=== PATIENT | female | born 1985 | race Caucasian/White ===

== ENCOUNTER 2018-10-21 07:36 | Emergency (ER) | payer OTHER ==
[~2018-10-21] VITALS: Ht 157.5 cm; Wt 71.2 kg
[2018-10-21 07:58] VITALS: BP 124/83
--- NOTE | 2018-10-21 07:58 | NUR ---
PT TAKEN TO BED 1 TRIAGED AT BEDSIDE.
--- NOTE | 2018-10-21 08:01 | NUR ---
32/F c/o vaginal bleeding that started last night. Pt states it began as spotting and this morning she noticed small blood clots. pt states she has only changed x1 panty liner. Pt reports being 11 weeks . G-2 P-1. Pt also c/o mild lower abdominal cramping. Pt states "it feels like menstrual cramps." Skin warm, dry and intact. AOX4, clear speech. VSS. Pt states OBGYN is a checker in.
--- NOTE | 2018-10-21 09:01 | NUR ---
Pt report given to Cristela WIN. Transfer of care at this time.
[2018-10-21 09:12] LABS: BASOPHILS % (AUTO) 0.5 % (0.0-2.0); EOSINOPHILS # (AUTO) 0.1 K/uL (0-0.4); EOSINOPHILS % (AUTO) 1.3 % (0.0-4.0); HEMATOCRIT 41.4 % (36-48); HEMOGLOBIN 14.5 g/dL (12.0-16.0); LYMPHOCYTES # (AUTO) 1.3 K/uL (2.5-16.5); LYMPHOCYTES % (AUTO) 19.2 % (20.5-51.1); MEAN CORPUSCULAR HEMOGLOBIN 32 pg (27-31); MEAN CORPUSCULAR HGB CONC 35 g/dL (33-37); MONOCYTES # (AUTO) 0.7 K/uL (0.8-1.0); NEUTROPHILS # (AUTO) 4.5 K/uL (1.8-7.7); PLATELET COUNT (AUTO) 226 K/uL (140-450); RED BLOOD CELL COUNT(AUTO) 4.55 MIL/uL (4.20-5.40); RED CELL DISTRIBUTION WIDTH 13.2 % (11.6-13.7); WHITE BLOOD COUNT (AUTO) 6.5 K/uL (4.8-10.8)
[2018-10-21 10:03] LABS: ANION GAP 13.5 (8-16); CARBON DIOXIDE 26.4 mmol/L (21-32); CREATININE 0.6 mg/dL (0.6-1.3); POTASSIUM 3.9 mmol/L (3.5-5.1)
[2018-10-21 10:16] LABS: ALBUMIN 3.8 g/dL (3.4-5.0); TOTAL BILIRUBIN 0.5 mg/dL (0.0-1.0)
[2018-10-21 10:23] LABS: APPEARANCE,URINE CLEAR (CLEAR); BILIRUBIN,URINE NEGATIVE (NEGATIVE); BLOOD, URINE 3+ (NEGATIVE); COLOR,URINE YELLOW (YELLOW); LEUKOCYTE ESTERASE ,URINE NEGATIVE (NEGATIVE); NITRITE, URINE NEGATIVE (NEGATIVE); UGLUCOSE NEGATIVE (NEGATIVE)
--- NOTE | 2018-10-21 10:31 | NUR ---
Pelvic exam has been set up. Pt informed that is going to do pelvic exam on her. Awaiting Dr. Burr to implement the exam.
[2018-10-21 11:00] LABS: RBC,URINE NONE SEEN /HPF (0-5); WBC,URINE NONE SEEN /HPF (0-5)
[2018-10-21 11:46] VITALS: BP 114/77
--- NOTE | 2018-10-21 11:46 | NUR ---
Patient discharged with v/s stable. Written and verbal after care instructions given and explained. Patient verbalized understanding. Ambulatory with steady gait. All questions addressed prior to discharge. Advised to follow up with PMD.
== END 2018-10-21 11:46 | disposition home or self-care (01) ==
LOC: MED 07:36
DX: O20.0 Threatened abortion (principal); Z3A.11 11 weeks gestation of pregnancy
CPT/HCPCS: 36415; 76817; 80053; 81001; 81025; 84702; 85025; 86900; 86901; 99284; Q0092

== ENCOUNTER 2018-10-24 15:30 | Inpatient (IN) | payer OTHER ==
[~2018-10-24] VITALS: Ht 157.5 cm; Wt 71.2 kg
[2018-10-24 15:36] VITALS: BP 128/70
--- NOTE | 2018-10-24 15:50 | NUR ---
32/M BIB FAMILY C/O VAG BLEED& LOWER ABDOMINAL CRAMPING X 5 DAYS. PATIENT STATES PAIN OF 7/10 AT THIS TIME. PATIENT POSITIONED FOR COMFORT; HOB ELEVATED; BEDRAILS UP X1; BED DOWN. ER MD MADE AWARE OF PT STATUS.
--- NOTE | 2018-10-24 15:52 | NUR ---
US AT BEDSIDE
[2018-10-24 16:25] LABS: BASOPHILS % (AUTO) 0.2 % (0.0-2.0); EOSINOPHILS # (AUTO) 0.1 K/uL (0-0.4); EOSINOPHILS % (AUTO) 0.9 % (0.0-4.0); HEMATOCRIT 42.4 % (36-48); HEMOGLOBIN 14.9 g/dL (12.0-16.0); LYMPHOCYTES # (AUTO) 1.5 K/uL (2.5-16.5); LYMPHOCYTES % (AUTO) 14.3 % (20.5-51.1); MEAN CORPUSCULAR HEMOGLOBIN 32 pg (27-31); MEAN CORPUSCULAR HGB CONC 35 g/dL (33-37); MONOCYTES # (AUTO) 0.8 K/uL (0.8-1.0); MONOCYTES % (AUTO) 7.8 % (1.7-9.3); NEUTROPHILS # (AUTO) 7.9 K/uL (1.8-7.7); NEUTROPHILS % (AUTO) 76.8 % (42.2-75.2); PLATELET COUNT (AUTO) 240 K/uL (140-450); RED BLOOD CELL COUNT(AUTO) 4.66 MIL/uL (4.20-5.40); RED CELL DISTRIBUTION WIDTH 13.4 % (11.6-13.7); WHITE BLOOD COUNT (AUTO) 10.2 K/uL (4.8-10.8)
[2018-10-24 16:36] LABS: APPEARANCE,URINE BLOODY (CLEAR); BILIRUBIN,URINE NEGATIVE (NEGATIVE); BLOOD, URINE 3+ (NEGATIVE); COLOR,URINE RED (YELLOW); LEUKOCYTE ESTERASE ,URINE NEGATIVE (NEGATIVE); NITRITE, URINE NEGATIVE (NEGATIVE); UGLUCOSE NEGATIVE (NEGATIVE)
[2018-10-24 16:43] LABS: RBC,URINE TOO NUMEROUS TO COUN /HPF (0-5); WBC,URINE NONE SEEN /HPF (0-5)
--- NOTE | 2018-10-24 19:02 | NUR ---
Patient will be admitted to [facility]. Admited to MS. Will go to room 106A. Belongings list completed. Report to JOSUE RODRIGUEZ.
--- NOTE | 2018-10-24 19:43 | NUR ---
RECEIVED REPORT FROM CHARGE NURSE FOR ADMISSION. PT. AWAKE AND ALERT. ABLE TO VERBALIZE SIMPLE NEEDS. DX. OF MISSED AND WITH IVF SITE TO [facility] UNDER MD RAMA LY. FAMILY MEMBERS IN HERE TO VISIT.
--- NOTE | 2018-10-24 20:14 | NUR ---
MD ONTIVEROS CALLED FOR PT. TO SIGN CONSENT FOR SUCTION, DILATION AND CURETTAGE. PT. AWAKE AND ALERT. ORIENTED. OR NURSES IN HERE AND TALKED WITH HER AND FAMILY. PT. TO BE TRANSPORTED TO SURGERY FOR PROCEDURE. ORIENTED X 4. VITAL SIGNS WITH IN NORMAL LIMITS.
[2018-10-24 20:16] VITALS: BP 133/71
[2018-10-24] MEDS ORDERED: fentaNYL 0.05 MG/ML VIAL ONE (20:38)
--- NOTE | 2018-10-24 21:44 | NUR ---
PT. BACK FROM OR AWAKE AND ALERT. NO SOB. NO PAIN COMPLAINTS AT THIS TIME. ENCOURAGED TO USE CALL LIGHT FOR ANY HELP SHE MAY NEED OR IF IN PAIN. "OK"
[2018-10-24 21:45] VITALS: BP 113/65
[2018-10-24] MEDS ORDERED: IBUPROFEN 600 MG TAB PO PRN (23:10)
--- NOTE | 2018-10-24 23:23 | NUR ---
PT. STILL AWAKE AT THIS TIME. SPOUSE AT BEDSIDE. ASSISTED TO RESTROOM TO URINATE BY MARRIAGE AND FAMILY THERAPIST. "I FEEL WEAK." ENCOURAGED TO USE CALL LIGHT FOR A [place] HELP SHE MAY NEED.
[2018-10-25 00:46] VITALS: BP 111/55
--- NOTE | 2018-10-25 00:54 | NUR ---
PT. ASKED IF SHE IS BLEEDING HEAVILY. "NO, ONLY SPOT AND NOT HEAVY LIKE BEFORE." ENCOURAGED TO LET ME KNOW IF SHE URINATES AGAIN AND IF SHE CHANGES HER SANITARY PADS TO LET ME SEE IT SO WE WOULD KNOW IF SHE IS BLEEDING HEAVILY. "OK" CALL LIGHT WITH IN REACH. REMINDED TO USE CALL LIGHT FOR HELP.
--- NOTE | 2018-10-25 01:45 | NUR ---
SLEEPING AT THIS TIME.
--- NOTE | 2018-10-25 03:58 | NUR ---
WOKE UP AND ASSISTED TO RESTROOM TO URINATE. STATED PADS NOT SOAKED. ONLY SPOTS. ABLE TO VERBALIZE WELL WITH ME. STILL WEAK AT THIS TIME. CALL LIGHT WITH IN REACH.
--- NOTE | 2018-10-25 04:48 | NUR ---
PT. SLEPT BACK AFTER URINATING IN RESTROOM. NO PAIN COMPLAINTS DONE.
[2018-10-25 07:03] LABS: BASOPHILS % (AUTO) 0.2 % (0.0-2.0); HEMATOCRIT 32.4 % (36-48); HEMOGLOBIN 11.5 g/dL (12.0-16.0); LYMPHOCYTES # (AUTO) 0.8 K/uL (2.5-16.5); LYMPHOCYTES % (AUTO) 9.5 % (20.5-51.1); MEAN CORPUSCULAR HEMOGLOBIN 33 pg (27-31); MEAN CORPUSCULAR HGB CONC 36 g/dL (33-37); MEAN CORPUSCULAR VOLUME 91.6 fL (80-94); MONOCYTES # (AUTO) 0.3 K/uL (0.8-1.0); NEUTROPHILS # (AUTO) 6.9 K/uL (1.8-7.7); NEUTROPHILS % (AUTO) 86.3 % (42.2-75.2); PLATELET COUNT (AUTO) 219 K/uL (140-450); RED BLOOD CELL COUNT(AUTO) 3.54 MIL/uL (4.20-5.40); RED CELL DISTRIBUTION WIDTH 13.3 % (11.6-13.7)
--- NOTE | 2018-10-25 07:14 | NUR ---
PT. BEEN AWAKE FOR QUIET SOME TIME NOW. ABLE TO VERBALIZE NEEDS WELL. NO COMPLAINTS OF PAIN DONE S/P PROCEDURE,. STATED PAIN IS TOLERABLE AND SO FAR NO NEED OF ANY PAIN RELIEVER DURING MY SHIFT. ASSISTED IN GOING RESTROOM RT "I FEEL WEAK". NO N/V THIS SHIFT.
--- NOTE | 2018-10-25 07:19 | NUR ---
RECEIVED PT FROM COUNTERSINKER BALANCE SCREW HOLE NURSE, SAM, PT IS AWAKE AND SEATED ON THE BED WITH IV LINE ON THE RT AC G. 20 ON SALINE LOCK, SIDE RAILS ARE UP AND CALL LIGHT WITHIN REACH, PT DENIES PAIN AND NO SIGN OF DISTRESS NOTED. WILL MONITOR PT.
[2018-10-25 08:00] VITALS: BP 113/61
--- NOTE | 2018-10-25 08:02 | NUR ---
PATIENT HAS BEEN SCREENED AND CATEGORIZED LOW NUTRITION RISK. PATIENT WILL BE SEEN WITHIN 7 DAYS OF ADMISSION. 10/31/[address]
--- NOTE | 2018-10-25 08:23 | NUR ---
PT IS AWAKE AND IS EATING HER BREAKFAST, C/O PAIN RATE OF 6/10 AND PAIN MEDICATION WAS GIVEN AND TOLERATED IT. WILL RE-ASSESS AND MONITOR PT.
--- NOTE | 2018-10-25 10:30 | NUR ---
DR. ONTIVEROS CALLED AND MADE A TELEPHONE ORDER THAT PT CAN BE DISCHARGE TODAY AND CAN HAVE IBUPROFEN OTC AT [facility] FOR PAIN, ORDER READ BACK AND VERIFIED AND WILL CARRY OUT.
--- NOTE | 2018-10-25 12:35 | NUR ---
DISCHARGED PT VIA WHEELCHAIR TO HOME, ACCOMPANIED BY , DISCHARGED TEACHINGS AND INSTRUCTIONS GIVEN TO PT AND VERBALIZED UNDERSTANDING, IV LINE AND ARM BAND REMOVED, PT IS STABLE AT THIS TIME AND DENIES PAIN.
== END 2018-10-25 12:35 | disposition home or self-care (01) | DRG 770 ==
LOC: MED 15:30 → MTU 18:46
PROVIDERS: ADMIT Obstetrics & Gynecology; ATTEND Obstetrics & Gynecology
PROC: 10D17ZZ Extraction of Products of Conception, Retained, Via Natural or Artificial Opening (ICD-10-PCS; principal; 2018-10-24 20:00)
DX: O02.1 Missed abortion (principal); O46.91 Antepartum hemorrhage, unspecified, first trimester; Z3A.11 11 weeks gestation of pregnancy
CPT/HCPCS: 36415; 76817; 81001; 81025; 84702; 85025; 86886; 86900; 86901; 87081; 88305; 99285; J3010; J7030; Q0092